=== PATIENT | male | born 1975 | race Caucasian/White ===

== ENCOUNTER 2024-08-12 15:36 | Emergency (ER) | payer OTHER, SELFPAY ==
--- NOTE | ~2024-08-12 | XR_ITS ---
XR knee LT min 4V DATE: 08/12/2024 16:14 INDICATION: Medial pain for 2 months. No known injury. TECHNIQUE: 4 views COMPARISON: None FINDINGS: Small knee joint effusion is suggested. No fracture or dislocation, periosteal reaction or bone destruction. Mild periarticular spurring of the patella. Moderate loss of medial compartment joint space. No radiopaque intra-articular loose body or chondrocalcinosis. IMPRESSION: Small knee joint effusion; no fracture or dislocation Osteoarthritis involving primarily the medial and patellofemoral compartments Reviewed, dictated and finalized at location A.
[2024-08-12 15:49] VITALS: BP 144/81; PULSE 87; RESP 16; TEMP 36.7; O2SAT 96
--- NOTE | 2024-08-12 15:59 | ED_ITS ---
HPI - Extremity Injury (Lower) General Chief Complaint: Extremity Injury, Lower Stated Complaint: knee pain Time Seen by Provider: 08/12/24 15:50 Source: patient and RN notes reviewed Mode of arrival: ambulatory Limitations: no limitations History of Present Illness HPI Narrative: Patient presents today complaining of left knee pain x2 months. Patient denies any known injury or trauma. Denies swelling, numbness or tingling. Pain increases with weight-bearing. He has tried some ibuprofen without relief. Related Data Home Medications Medication Instructions Recorded Confirmed lisinopril 20 mg tablet 20 mg PO DAILY 08/12/24 08/12/24 Allergies Allergy/AdvReac Type Severity Reaction Status Date / Time No Known Allergies Allergy Verified 08/12/24 15:55 Review of Systems Review of Systems: CONSTITUTIONAL: Denies body aches, fever, chills, or sweats. EYES: Denies visual changes, redness, or discharge. ENT: Denies rhinorrhea, congestion, sore throat, or otalgia. CARDIOVASCULAR: Denies chest pain, palpitations, or edema. RESPIRATORY: Denies cough or dyspnea. GASTROINTESTINAL: Denies abdominal pain, nausea, vomiting, or diarrhea. GENITOURINARY: Denies dysuria or hematuria. SKIN: Denies rash, itching, or wounds. MUSCULOSKELETAL: Denies back pain, or myalgia.+ left knee pain NEUROLOGIC: Denies headache, numbness, tingling, or weakness. PSYCH: Denies depression or anxiety. PMFSH Comments At time of signature, I have reviewed and agree with nursing past medical, surgical, social and family history unless otherwise noted. Please see nursing chart for further information. There is no relevant family history pertinent to the presenting complaint Exam Narrative: GENERAL: Well-appearing, well-nourished, and in no acute distress. HEAD: Normocephalic, atraumatic. EYES: EOMI. No redness or drainage. Conjunctivae normal. ENT: Mucous membranes pink and moist. NECK: Normal AROM. CHEST: No respiratory distress. EXTREMITIES: Left knee: Mild tenderness to the medial joint line. No bony tenderness to the patella. No abnormal movement of the patella. No tenderness to the patellar tendon. SKIN: Warm, dry, no rash. Capillary refill normal. Normal skin turgor. NEURO: No focal deficits. Alert and oriented x3. Gait steady. PSYCH: Normal affect. No signs of depression or anxiety. Course Course Level of Care: Express Care Visit Vital Signs Vital signs: Vital Signs Temperature 98.1 F 08/12/24 15:49 Pulse Rate 87 08/12/24 15:49 Respiratory Rate 16 08/12/24 15:49 Blood Pressure 144/81 H 08/12/24 15:49 Pulse Oximetry 96 08/12/24 15:49 Oxygen Delivery Room Air 08/12/24 15:49 Temperature 98.1 F 08/12/24 15:49 Pulse Rate 87 08/12/24 15:49 Respiratory Rate 16 08/12/24 15:49 Blood Pressure 144/81 H 08/12/24 15:49 Pulse Oximetry 96 08/12/24 15:49 Oxygen Delivery Room Air 08/12/24 15:49 Reviewed MDM - Extremity Injury (Lower) MDM Narrative Medical decision making narrative: X-ray shows osteoarthritis and small joint effusion. Discussed with patient to continue NSAIDs. Will write prescription for diclofenac. Also urged patient to follow-up with orthopedics for further evaluation. Anticipatory guidance given. Differential Diagnosis Differential diagnosis: Likely other (Joint effusion, osteoarthritis, tendinitis, ligamentous injury, meniscus injury) Imaging Data Radiologist's impression: ITS Impressions Knee X-Ray 08/12/24 16:18 IMPRESSION: Small knee joint effusion; no fracture or dislocation Osteoarthritis involving primarily the medial and patellofemoral compartments Critical Care Time Critical Care Time Critical Care Time: No Discharge Plan Discharge Clinical Impression: Osteoarthritis of left knee Qualifiers: Osteoarthritis type: unspecified Qualified Code(s): M17.12 - Unilateral primary osteoarthritis, left knee Patient Disposition: Home, Self-Care Condition: Stable Instructions: Osteoarthritis (DC) Additional Instructions: Your knee x-ray shows arthritis and small collection of fluid within the joint. Please take the diclofenac as prescribed. Do not take any additional anti- inflammatories such as Aleve or ibuprofen. You may add Tylenol if needed. Elevate and ice the knee. Follow-up with orthopedics for further evaluation and treatment. Your blood pressure was elevated above 120/80 today at Urgent Care. This puts you above the threshold for follow up. Please schedule a followup visit with your personal physician as soon as possible, for further evaluation and treatment. Even blood pressure exceeding 120/80 may indicate pre-hypertension. Prescriptions: New diclofenac sodium 50 mg tablet,delayed release (DR/EC) 50 mg PO TID PRN (Reason: pain) Qty: 20 0RF No Action lisinopril 20 mg Tablet 20 mg PO DAILY Follow-up/Referrals: Nahum Burk MD [Primary Care Provider] - Ralf Gagnon MD [Physician] - Time of Disposition: 16:38
== END 2024-08-12 16:38 | disposition home or self-care (01) ==
PROVIDERS: Emergency Provider Nurse Practitioner; PCP Family Medicine
DX: M17.12 Unilateral primary osteoarthritis, left knee (principal); I10 Essential (primary) hypertension
CPT/HCPCS: 73564; 99213; G0463

== ENCOUNTER 2024-12-01 11:15 | Outpatient (CLI) | payer OTHER, SELFPAY ==
--- NOTE | 2024-12-01 11:37 | ECG_ITS ---
Test Date: 2024-12-01 11:42:32 Measurements Intervals [place] Rate: 77 P: 30 OK: 144 QRS: 34 QRSD: 110 T: 14 QT: 354 QTc: 402 Interpretive Statements SINUS RHYTHM MINIMAL Q WAVES- INFERIOR LEADS MODERATE T-WAVE ABNORMALITY, CONSIDER ANTERIOR ISCHEMIA BASELINE ARTIFACT- I, AVR, AVL, V1 ABNORMAL ECG No previous ECG available for comparison Electronically Signed On 12-01-2024 11:46:18 CHILD PROTECTIVE INVESTIGATOR by Kody Chew D.O.
--- OUTSIDE RECORDS SUMMARY | 2024-12-01 11:43 | XMS_ITS | Continuity of Care Document ---
Author Organization [facility] Address [address] [place] [address] Phone Care Team Providers Care Ending Machine Operator Name Role Phone Fulton OD, Mike Unavailable Unavailable Advance Directives Directive Yes / No Effective Date File Name No Information Encounters Encounter Description Practice Location Reason(s) For Visit Diagnoses Date Provider Providers Copied on Encounter [facility], [address], [place], [place], [id number], [place] tel:[phone] [facility] No Information 2-200 6 Fulton OD Mike. [address] , [address], [place], [address], [place]. tel:[phone] Family History Family Member Type Diagnosis Age At Onset No Information Payers Payer name Insurance type Covered republican ID Authoriza tion(s) No Information Social History Type Description Quantity Date Captured Comments Sex Male Smoking Status No Information Chief Complaint And Reason For Visit No Information Reason For Referral Reason For Referral No Information History Of Present Illness Encounter Date Complaint History Of Prese nt Illness No Information Functional Status Date Functional Assessmen t No Information Instructions Date Instruction Additional Infor mation No Information Assessments Type Assessment Date No Information Patient Care Teams Name Effective Dates (start - stop) Status Members No Information
[2024-12-01 12:05] LABS: Sodium 137 mmol/L (137-145)
[2024-12-01 12:10] LABS: Anion Gap 10 mmol/L (4-12); Blood Urea Nitrogen 31 mg/dL (9-20); Calcium 9.9 mg/dL (8.4-10.2); Carbon Dioxide 27 mmol/L (22-30); Chloride 100 mmol/L (98-107); Estimated Glomerular Filt Rate 57; Glucose 100 mg/dL (65-110); Potassium 4.8 mmol/L (3.4-5.0)
== END 2024-12-01 11:16 | disposition home or self-care (01) ==
LOC: ANHSURGERY 11:18
PROVIDERS: Anesthesiology; PCP Family Medicine; Visit Provider Orthopaedic Surgery
DX: Z01.818 Encounter for other preprocedural examination (principal); T50.2X5A Adverse effect of carbonic-anhydrase inhibitors, benzothiadiazides and other diuretics, initial encounter; I10 Essential (primary) hypertension; R94.31 Abnormal electrocardiogram [ECG] [EKG]
CPT/HCPCS: 36415; 80048; 93005

== ENCOUNTER 2024-12-08 00:21 | Day surgery (SDC) | payer OTHER, SELFPAY ==
[2024-11-29 09:43] VITALS: BMI 37.0
--- NOTE | 2024-11-29 10:07 | PC.NURSE ---
Report to the Outpatient Waiting Room, entrance under the green pavilion located off [facility], at time 1:00PM on date 12/08/24. Planned Procedure Time: 3:00PM.? Time changes happen often and if your time is changed the preop area will call you the afternoon before. - You and your visitor will be asked to self-screen and do not enter if you have any COVID symptoms. Please call surgeon if you need to reschedule. - A mask is optional within the hospital at this time. Patients may have clear liquids (water, carbonated beverages, clear teas, apple juice) until 3 hours prior to surgery with a maximum of 20 ounces. - No food from midnight until time of surgery and no smoking, or chewing tobacco (or any form of nicotine). No chewing gum, candy or mints. . Take only the following medications with a SIP of water on the morning of surgery: N/A DO NOT STOP ANY OF YOUR OTHER PRESCRIPTION MEDICATIONS PRIOR TO SURGERY EXCEPT THE FOLLOWING Hold all vitamins and supplements for 3 days per anesthesiologist. Medications to discontinue per physician: N/A Please no make-up, nail setswana, hairspray, perfume, deodorant, or body powder the day of surgery.? No jewelry (including any body piercings) or valuables the day of surgery, leave them at home.? Please take a shower or bath the night before, or the morning of, surgery with an antibacterial soap.? Wear comfortable, loose fitting clothing.? - Jewelry must be removed prior to entering the operating room.? Rings and piercings that are not removed may be cut off. - The hospital will not accept responsibility for valuables.? - Please leave all valuables, including medications, at home the day of surgery. If you are going home after surgery, a licensed motorcycle delivery driver must drive you home.? - NO public transportation without another adult if you receive anesthesia. - We recommend that an adult stay with you for 24 hours following discharge. - We also recommend that you do not drive, make important decision, drink alcoholic beverages, or take any drugs that were not prescribed by your health care provider for at least 24 hours after your discharge time. Follow any additional instructions given to you from your surgeon. Telephone instructions given to patient and asked if any additional questions and then verbalized understanding. Patient advised to call surgeon office or pre surgery nurse liaison [phone] if any additional questions.
[2024-12-08] VITALS (7 sets, daily range): BP systolic 124–180; BP diastolic 74–103; PULSE 67–97; RESP 16–17; TEMP 36.8–37.1; O2SAT 97–100
[2024-12-08] MEDS: ACETAMINOPHEN 500 MG TABLET 1000 MG PO (13:55)
[2024-12-08] MEDS: LACTATED RINGERS 1,000 ML 30 ML IV CONT (14:00)
[2024-12-08] MEDS: KETOROLAC 15 MG/ML VIAL (*BKC) IV PUSH (14:02)
--- NOTE | 2024-12-08 14:05 | WPDHPUPDATE1 ---
History and Physical Update Update Date/Time: 12/08/24 14:05 History and Physical has been reviewed, including an updated exam of the patient. There are NO changes in the patient's condition. Risks, benefits, and alternatives have been discussed and questions answered. Patient agrees to proceed with procedure.
--- NOTE | 2024-12-08 14:08 | WPDANESEPPF ---
Anes - Initial Pre Proc Eval Procedure: Operation Date: 12/08/24 15:00 Proposed Procedures p Left Knee Arthroscopy Partial Medial Meniscectomy - Ralf Gagnon MD Date/Time: 12/08/24 14:08 Surgeon: aRlf Gagnon MD Pre Op Diagnosis: Lt Knee Medial Meniscus Tear Patient Data Age: 49 Gender: M Height: 1.7 m Weight: 105.1 kg Last Vital Signs Temp 37.1 C 12/08/24 13:10 Pulse 75 12/08/24 13:10 Resp 16 12/08/24 13:10 BP 180/103 H 12/08/24 13:10 Pulse Ox 100 12/08/24 13:10 O2 Del Method Room Air 12/08/24 13:10 Allergies Allergy/AdvReac Type Severity Reaction Status Date / Time No Known Allergies Allergy Verified 11/29/24 09:42 Home Medications ?Medication ?Instructions ?Recorded ?Confirmed ?Type lisinopril 20 1 tablet PO DAILY 08/12/24 12/08/24 History mg-hydrochlorothiazide 12.5 mg tablet aspirin 81 mg tablet,delayed 81 mg PO BID 14 days #28 tabs 12/08/24 Rx release hydrocodone 5 mg-acetaminophen 325 1 - 2 tablet PO Q4-6H PRN pain 7 12/08/24 Rx mg tablet days #30 tabs Patient hx anesthesia problems: none Family hx anesthesia problems: none Results Review: All pre-operative results and documents have been reviewed as part of the pre-operative evaluation. [facility] Past Medical History Medical History Tear of acetabular labrum Family History Family History (System 11/02/24 @ 10:39 by Carolina Amado) Grandparent Family history of coronary artery disease Social History Social History (System 11/02/24 @ 10:39 by Carolina Amado) Smoking status: Current every day smoker Tobacco type: smokeless tobacco Smokeless tobacco user: chewing tobacco Alcohol intake: current Substance use: never Living arrangements: alone Spiritual care concerns: No Anes - Eval Final PreProcedure Day of Procedure 12/08/24 14:08 Patient weight: obese Heart: regular rate and rhythm Lungs: clear to auscultation Airway: Mallampati scale class II Neurological: alert and oriented Last oral intake: >/= 8 hours ASA classification: III Emergent: no Anesthetic plan: proceed Anesthesia type and monitoring: general LMA and standard monitoring Results Review: All pre-operative results and documents have been reviewed as part of the pre-operative evaluation. Informed Consent: The patient's anesthetic plan and its attendant risks and benefits were discussed with the patient/family/POA. Questions were solicited and answers provided to the satisfaction of the patient/family/POA.
[2024-12-08] MEDS: ceFAZolin 2 GM/D5W 50 ML 2 GM/50 ML BAG IVPB (14:37)
[2024-12-08] MEDS: BUPIVACAINE/EPINEPHRINE 0.5% 30 ML VIAL 20 ML INFILTRATE (15:10)
--- NOTE | 2024-12-08 15:59 | W.PM.PROC2 ---
Procedure Note - Detailed Date of Procedure 12/08/24 Pre-op Diagnosis Lt Knee Medial Meniscus Tear Post-op Diagnosis Same Procedure Performed Arthroscopic partial medial meniscectomy, left knee. Surgeon Ralf Gagnon MD Electrical Software Engineer Anum Peralta PA-C Anesthesia General Findings Complex posterior horn meniscus tear. Extensive chondrocalcinosis. Exposed medial bone on the tibia. Medial femur chondromalacia grade 3, medial tibia grade 4. Lateral femur chondromalacia grade 2, lateral tibia grade 1. Patellar grade 2. Description of Procedure The patient was identified and the surgical site confirmed and signed in the preoperative holding area. Antibiotics were started per protocol, and the patient was brought to the operative room and transferred to the OR table. A general anesthetic was administered. Supine position with the operative lower extremity position in the leg bowman after placement of a well padded tourniquet. The leg support was lowered and the contralateral limb was supported with a soft bolster. The knee was prepped and draped in the usual sterile fashion. A time-out was performed. The portal sites were marked and infiltrated with 0.5% Marcaine 20 mL. The limb was exsanguinated and the tourniquet inflated to 300 mL Hg. Standard inferolateral and inferomedial portals were established. Inflow was obtained with the saline pump. The camera was introduced. Diagnostic inspection of the joint was accomplished. The meniscus was debrided with the arthroscopic shaver and punches until stable. Gentle medial femoral chondroplasty performed. The arthroscopic instruments were removed. The tourniquet released and wounds closed with subcutaneous 4-0 Monocryl absorbable suture. Steri strips and a sterile dressing were applied. A light elastic wrap was placed. The patient was extubated and brought to the recovery room in stable condition. Estimated Blood Loss 5 Drains No Complications No immediate complications Condition Stable Disposition PACU [facility] Billing Surgery - Charge Forward: Surgery Billing
== END 2024-12-08 17:03 | disposition home or self-care (01) ==
PROVIDERS: PCP Family Medicine; Visit Provider Orthopaedic Surgery
PROC: (CPT 29870; principal; 2024-12-08 15:00)
DX: S83.232A Complex tear of medial meniscus, current injury, left knee, initial encounter (principal); M11.262 Other chondrocalcinosis, left knee; I10 Essential (primary) hypertension; F17.220 Nicotine dependence, chewing tobacco, uncomplicated
CPT/HCPCS: 29881; A9270; J0690; J1100; J1885; J2250; J2405; J2704; J3010; J7120

== ENCOUNTER 2025-08-02 16:20 | Emergency (ER) | payer OTHER, SELFPAY ==
--- NOTE | ~2025-08-02 | XR_ITS ---
EXAMINATION: XR foot RT min 3V, 08/02/2025 16:30 CDT HISTORY: swelling, tendrness COMPARISON: No comparisons available. Findings: No acute fracture or malalignment. No significant degenerative changes. Soft tissues unremarkable. Impression: No acute fracture or malalignment. Reviewed, dictated and finalized at location P. Impression: No acute fracture or malalignment.
--- NOTE | 2025-08-02 16:23 | ED_ITS ---
HPI - Extremity Problem General Chief complaint: Extremity Problem,Nontraumatic Stated complaint: RT Foot Swollen Time Seen by Provider: 08/02/25 16:30 Source: patient and RN notes reviewed Mode of arrival: ambulatory Limitations: no limitations History of Present Illness HPI Narrative: 49-year-old male presents concern for swelling to his right foot. He noticed pain. He denies any recent injury or trauma. He denies redness, warmth, pain. 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 He denies fever, body aches, chills, sweats. Denies decreased strength, sensation range of motion. MD Complaint: extremity swelling Related Data Allergies Allergy/AdvReac Type Severity Reaction Status Date / Time No Known Allergies Allergy Verified 08/02/25 16:25 Review of Systems Review of Systems: CONSTITUTIONAL: Denies malaise, chills, sweats, or fever. CARDIOVASCULAR: Denies chest pain, palpitations, or edema. RESPIRATORY: Denies cough or dyspnea. SKIN: Denies rash or itching, bruising, redness, swelling. MUSCULOSKELETAL: Reports NEUROLOGIC: Denies numbness, weakness All systems reviewed & are unremarkable except as noted in HPI and below PMFSH Past Medical History Medical History Nummular eczema Adult BMI 37.0-37.9 kg/sq m Psoriasis Screening for prostate cancer Screening for lipid disorders BMI 36.0-36.9,adult Tear of acetabular labrum Family History Family History Grandparent Family history of coronary artery disease Social History Social History Smoking status: Current every day smoker Tobacco type: smokeless tobacco Smokeless tobacco user: chewing tobacco Alcohol intake: current Substance use: never Living arrangements: alone Spiritual care concerns: No Comments At time of signature, agree with nursing past medical, surgical, social and family history. There is no relevant family history pertinent to the presenting complaint Exam Narrative: GENERAL: Well-appearing, well-nourished, and in no acute distress. HEAD: Normocephalic, atraumatic. EYES: PERRLA, conjunctivae clear NECK: Supple. CHEST: Speaks in full sentences. No respiratory distress. HEART: Regular rate and rhythm. Normal and equal peripheral pulses. EXTREMITIES: Left foot, ankle, digits have normal strength and sensation, normal range of motion. Mild general edema, concentrated on the 2nd digit without erythema, warmth, or ecchymosis. Normal sensation with sensitivity to light touch and pain. Mild tenderness below digits 2 tenderness. No open wounds, no skin tenting, no devitalized tissue or atrophy, no trophic changes, no obvious deformity, alignment normal, nearby joints and structures intact. Distal pulses palpable and equal bilaterally, skin warm, dry, pink. Capillary refill less than 3 seconds. SKIN: Warm, dry, no rash. NEURO: Alert and oriented x3. PSYCH: Normal mood and affect Course Course Emergency Course: Patient is aware of diagnosis, understands and agrees to treatment plan. Antici patory guidance given. Patient agrees to follow-up as directed and is aware of reasons to seek care at the emergency department. Portions of this record may have been created with voice recognition software Level of Care: Express Care Visit Vital Signs Vital signs: Reviewed. MDM - Extremity (Nontraumatic) Imaging Data My impression: Images reviewed, interpreted by radiologist, agree, see report. Radiologist's impression: EXAMINATION: XR foot RT min 3V, 08/02/2025 16:30 CDT HISTORY: swelling, tendrness COMPARISON: No comparisons available. Findings: No acute fracture or malalignment. No significant degenerative changes. Soft tissues unremarkable. Impression: No acute fracture or malalignment. Critical Care Time Critical Care Time Critical Care Time: No Discharge Plan Discharge Clinical Impression: Swelling of right foot Patient Disposition: Home Condition: Stable Instructions: Foot Sprain (ED) Additional Instructions: Avoid activities that cause pain until the pain subsides. Ice to the area 20-30 minutes 4-6 times a day Elastic wrap as directed for comfort for the next 5-7 days Tylenol for lesser pain Ibuprofen regularly for the next 2-3 days for the inflammation Follow up with your primary care provider if the condition is not improving within 1 week. If the condition worsens with numbness, tingling, decrease sensation with we akness seek treatment in the emergency room immediately. Patient Language: Icelandic Prescriptions: No Action lisinopril-hydrochlorothiazide 20-12.5 mg tablet 1 tablet PO DAILY Qty: 30 3RF Follow-up/Referrals: Nahum Burk MD [Primary Care Provider, [facility]] Time of Disposition: 16:53
[2025-08-02 16:28] VITALS: BP 163/106; PULSE 110; RESP 18; TEMP 36.9; O2SAT 100
== END 2025-08-02 17:00 | disposition home or self-care (01) ==
PROVIDERS: Emergency Provider Nurse Practitioner; PCP Family Medicine
DX: R22.41 Localized swelling, mass and lump, right lower limb (principal); F17.220 Nicotine dependence, chewing tobacco, uncomplicated
CPT/HCPCS: 73630; 99213; G0463

== ENCOUNTER 2025-08-31 11:43 | Outpatient (CLI) | payer OTHER, SELFPAY ==
--- NOTE | ~2025-08-31 | XR_ITS ---
EXAMINATION: XR shoulder RT min 2V, 08/31/2025 12:00 AITCHBONE BREAKER HISTORY: POSTERIOR RT SHOULDER PAIN AFTER FALL FEW WEEKS AGO COMPARISON: No comparisons available. Findings: No acute fracture or malalignment. Minimal degenerative changes Soft tissues unremarkable. Impression: No acute fracture or malalignment. Reviewed, dictated and finalized at location P. HBONE BREAKER Impression: No acute fracture or malalignment.
== END 2025-08-31 11:44 | disposition home or self-care (01) ==
PROVIDERS: PCP Family Medicine; Visit Provider Orthopaedic Surgery
DX: M25.511 Pain in right shoulder (principal)
CPT/HCPCS: 73030